=== PATIENT | female | born 1975 | race American Indian/Alaskan Native ===

== ENCOUNTER 2017-03-01 13:53 | Emergency (ER) | payer BC, OTHER ==
[2017-03-01 13:54] VITALS: BMI 32.9
[2017-03-01 14:02] VITALS: BP 112/72; PULSE 77; RESP 18; TEMP 98.2; O2SAT 99
--- NOTE | 2017-03-01 15:00 | C.PDOC ---
History Of Present Illness Patient is a 41 y/o female that presents to the ED for evaluation of right elbow pain for the last 6 days. Patient states she accidentally hit her right arm against a metal wall, injuring her right elbow 6 days ago. Patient reports pain to the area upon palpation and movement. Otherwise, denies any numbness/ weakness, swelling, or any other associated symptoms at this time. Time Seen by Provider: 03/01/17 14:04 Chief Complaint (Nursing): Upper Extremity Problem/Injury History Per: Patient History/Exam Limitations: no limitations Onset/Duration Of Symptoms: Days (6) Current Symptoms Are (Timing): Still Present Quality: "Pain" Exacerbating Factor(s): Movement Recent travel outside of the [place]: No Past Medical History Reviewed: Historical Data, Nursing Documentation, Vital Signs Vital Signs: Last Vital Signs Temp 98.2 F 03/01/17 13:59 Pulse 77 03/01/17 13:59 Resp 18 03/01/17 13:59 BP 112/72 03/01/17 13:59 Pulse Ox 99 03/01/17 15:54 - Medical History PMH: Gastritis - [facility] Procedures D & C NEC (04/14/14) Family History: States: Unknown Family Hx - Social History Hx Tobacco Use: No Hx Alcohol Use: No Hx Substance Use: No Review Of Systems Except As Marked, All Systems Reviewed And Found Negative. Constitutional: Negative for: Fever, Chills Musculoskeletal: Positive for: Arm Pain (right elbow) Neurological: Negative for: Weakness, Numbness Physical Exam - Physical Exam Appears: Non-toxic, No Acute Distress Skin: Normal Color, Warm, Dry Extremity: No Normal ROM (pain with supination and pronation of right arm), Tenderness (right olecranon), Capillary Refill (< 2 sec.), No Deformity, No Swelling Extremity: Bilateral: Normal Color And Temperature Pulses: Left Brachial: Normal, Right Brachial: Normal Neurological/Psych: Oriented x3, Normal Speech, Normal Cognition, Normal Motor, Normal Sensation ED Course And Treatment O2 Sat by Pulse Oximetry: 99 (on RA) Pulse Ox Interpretation: Normal - Other Rad Right elbow x-ray X-Ray: Interpreted by Me, Viewed By Me Interpretation: No fracture or dislocation. Progress Note: Right elbow x-ray ordered and reviewed. On reassessment, patient is resting comfortably, with no acute distress. Long arm splint applied by CP and checked by me. Patient is being discharged home with instructions to follow up with orthopedist. Disposition - Disposition Referrals: Marquez Porras MD [Staff Provider] - Disposition: HOME/ ROUTINE Disposition Time: 14:58 Condition: STABLE Additional Instructions: Follow up with Orthopedist within 1-2 days. Return to ED if feel worse. Prescriptions: Ibuprofen [Motrin Tab] 600 mg PO Q8 #30 tab Instructions: Elbow Sprain (ED) Forms: Work Excuse - Clinical Impression Clinical Impression: Elbow contusion - PA / PRINT FINISHER / Resident Statement MD/DO has reviewed & agrees with the documentation as recorded. - Scribe Statement The provider has reviewed the documentation as recorded by the Scribfritz Varela All medical record entries made by the Scribe were at my direction and personally dictated by me. I have reviewed the chart and agree that the record accurately reflects my personal performance of the history, physical exam, medical decision making, and the department course for this patient. I have also personally directed, reviewed, and agree with the discharge instructions and disposition.
--- NOTE | 2017-03-01 17:20 | RAD ---
PROCEDURE: Radiographs of the right elbow. HISTORY: injury COMPARISON: No prior. FINDINGS: BONES: Normal. No fracture. JOINTS: Normal. No osteoarthritis. SOFT TISSUES: Normal. JOINT EFFUSION: None. OTHER FINDINGS: None. IMPRESSION: No evidence of acute fracture or dislocation.
== END 2017-03-01 15:33 | disposition home or self-care (01) ==
LOC: C.ER 13:53
DX: S50.01XA Contusion of right elbow, initial encounter (principal); W22.8XXA Striking against or struck by other objects, initial encounter; Y92.9 Unspecified place or not applicable